=== PATIENT | male | born 1950 | race American Indian/Alaskan Native ===

== ENCOUNTER 2017-11-25 11:05 | Day surgery (SDC) | payer MEDICARE ==
[~2017-11-25 11:05] MED LIST: GARAMYCIN ONE; KENALOG-40 ONE; LACTATED RINGERS 1,000 ML IV SCH; TETRACAINE 0.5% OD PRN; VERSED IV NR
--- NOTE | 2017-11-25 12:59 | Anesthesia Day of Surgery ---
Anesthesia Day of Surgery - Day of Surgery Patient Examined: Yes Patient H&P Reviewed: Yes Patient is NPO: Yes
--- NOTE | 2017-11-25 12:59 | Anesthesia Consultation ---
Anesthesia Consult and Med Hx Date of service: 11/25/17 - Airway Anesthetic Teeth Evaluation: Edentulous ROM Head & Neck: Adequate Mental/Hyoid Distance: Adequate Mallampati Class: Class III Intubation Access Assessment: Possibly Difficult - Pulmonary Exam CTA: Yes - Cardiac Exam Cardiac Exam: RRR - Pre-Operative Health Status ASA Pre-Surgery Classification: ASA3 Proposed Anesthetic Plan: General, MAC - Cardiovascular System Hx Hypertension: Yes - Central Nervous System CVA: Yes - Endocrine Hx Insulin Dependent Diabetes: Yes - Other Systems Hx Obesity: Yes
[2017-11-25] MEDS: VIGAMOX OD SCH ×3 (13:03→13:20)
[2017-11-25] MEDS ORDERED: SUBLIMAZE ONE ×4 (14:07→15:15)
[2017-11-25] MEDS ORDERED: VERSED ONE ×4 (14:09→15:15)
[2017-11-25] MEDS ORDERED: ROBINUL ONE ×2 (14:53)
[2017-11-25] MEDS ORDERED: ZOFRAN ONE (15:00)
[2017-11-25] MEDS ORDERED: DECADRON ONE (15:00)
[2017-11-25] MEDS ORDERED: BSS OS ONE (15:07)
[2017-11-25] MEDS ORDERED: XYLOCAINE MPF 1% INFILTRATI ONE (15:09)
--- NOTE | 2017-11-25 16:34 | Operative Report ---
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 POSTOPERATIVE DIAGNOSIS: Same PROPOSED PROCEDURE: Endothelial keratoplasty right eye repeat ADDITIONAL PROCEDURE: NONE OPERATIVE PROCEDURE: Same SURGEON: Sarah Velasco MD [employer] SURGEON: [] ANESTHESIA: Monitored anesthesia care in combination with topical and intracameral anesthesia because of the established specific risk of reflux, arrhythmias, or anxiety attacks associated with ocular manipulation, as well as the difficulty of the button tacker to manage such potentially catastrophic events while simultaneously attempting to complete the surgical procedure and was deemed necessary for the patient's safety to have an anesthesiologist was present during the procedure whenever possible. The anesthesiologist was utilized to regulate the intravenous sedation of the patient so the patient was cooperative yet not asleep in order for the patient to successfully maintain fixation of the eye on the operating light of the microscope. SFDC CONSULTANT: COMPLICATIONS: None ALLERGIES: [No known drug allergies] PREOPERATIVE NOTE: The patient had a previous endothelial keratoplasty surgery which was uneventful. Unfortunately although the graft was attached to cornea never cleared. At that point a diagnosis of primary graft failure was given and decision was made to repeat the transplant. 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 Donor tissue will be used to replace the dysfunctional endothelium utilizing a penetrating technique into the anterior chamber. This complicated technique allows the patient to maintain structural integrity of the eye making it much more resistant to traumatic rupture than a standard keratoplasty. It also allows a larger than average surface area of transplanted endothelium which hopefully in the long run will allow for longer endothelial viability and success for the surgery. It also provides for faster visual recovery and less anisometropia than previous keratoplasty techniques. It is technically more difficult because of the complicated preparation of the donor tissue and insertion of the donor tissue into the anterior chamber with fixation of the tissue without direct suturing of the donor. This also provides an increased chance of dislocation of the donor tissue in the immediate postoperative period compared to standard keratoplasty techniques. This type of corneal transplant takes over twice as long as a standard corneal transplant. Moreover, the preparation and end of surgery are more time consuming for both the surgeon and staff: the blocking of the eye requires a longer setup time as noted, the procedure itself is more complex, and the patient needs to lay face up and flat in the recovery area for a specified period of time prior to discharge. Preoperatively, it was discussed with the patient that they could have either a standard corneal transplant or a variation of a penetrating keratoplasty where only the posterior layers of the cornea are transplanted. With this new technique, as with any corneal transplant, there is always the possibility that the surgery may need to be repeated; or, in this case, also repeated with a standard corneal transplant if the visual result is not satisfactory. However, some of the advantages of this current technique are much more rapid visual recovery and a tectonically stronger eye after surgery. PROGNOSIS: Excellent INDICATIONS FOR SURGERY: The patient is undergoing surgery with the hope of eliminating or improving these visual difficulties. OPERATIVE REPORT: The patient was taken into the preoperative area and evaluated medically and found from a systemic standpoint to be suitable for the planned surgery and anesthesia. The patient was then sedated and monitored by anesthesia. The patient was next taken into the operating room where they were positioned on the operating bed. They were given drops of topical anesthetic in the operative eye. Betadine was used to scrub the periorbital area, eyelids, adjacent cheek and forehead. The prepped area was dried with sterile gauze. The patient was draped, and a wire speculum was placed between the eyelids. The horizontal diameter of the cornea was measured with calipers to assist in determining the proper sizing of the trephination blade to be used for donor incision and for removal of the patients central Descemets membrane. PREPARATION OF DONOR TISSUE: Prior to surgery, the donor tissue was inspected and found to be adequate for the planned procedure. The involved eye bank provided the usual demographic information on the donor including age, cause of , necessary screening and blood work. The results were negative regarding possible transmission of diseases from the donor. Our inspection of the donor tissue showed no gross abnormalities. The cornea was inspected prior to surgery and found to be suitable and at the time of surgery was taken out of the storage solution and carefully centered on the cutting block with the centration based on the centration mohsen that was made the eye bank on the external surface of the cornea-the stromal side. The donor tissue was removed from the tissue storage container by carefully removing it with forceps taking care not to touch the endothelial surface but only the scleral rim Suction was applied, the centration was rechecked to make sure it was perfectly centered. Once the size of the appropriate trephine was determined, the donor was punched with the trephine. The donor cornea was then covered with tissue storage solution and put aside for use later in the surgical procedure. PREPARATION OF THE RECIPIENT CORNEA: Attention was now directed to the patient s eye. The epithelium was found to be very hazy and edematous and I elected to remove all the epithelium. The patient had previously had a clear corneal incision of 5.0 mm for corneal surgery. This incision was able to be opened by using a Sinskey hook to separate the superficial area of the wound. Next, a cyclodialysis spatula was used to separate the deeper anterior vertical portion and the incision and then the lamellar portion. After the side port incision was made as noted below, a specially modified Jose Manuel-Zaira hook was introduced through the reopened incision into the anterior chamber and advanced to the nasal side of the chamber. The hook was used to grab the nasal side of the graft and dislodge it. Pulling with the hook, the graft was disinserted from the back surface of the patient, or recipient, cornea and removed from the eye. In this case, the Descemets, which was stripped and removed, consisted of the previous graft with the portion of stroma from the previous donor. A sharp blade was next used to make a stab incision in mid peripheral cornea into the anterior chamber. This was done so that the inner portion would be covered by the donor tissue later in the case. Gentian erika marked the incision as well. This incision was positioned to be used by my right hand. A 23-gauge needle hooked up to an infusion of balanced salt solution was inserted through the midperipheral cornea into the anterior chamber. This was used to maintain the anterior chamber while removing Descemets membrane. A modified Jose Manuel-Sinkoko hook was next placed through the stab incision and the hook was used to remove previous graft . The anterior chamber was reinflated with balanced salt solution. The donor tissue was removed from the cutting block and transferred to the operative field. It was placed on the patients cornea so that the endothelium of the donor was facing up. The tissue storage solution and any blood or other material was allowed to flow off the donor tissue. A small amount of viscoelastic was then placed on the endothelial surface of the donor. Two forceps were then used to grasp an edge of the donor taking care not to actually touch the endothelium and the posterior portion of the donor, which had been previously dissected on the artificial anterior chamber, and the donor gently partially pulled apart about half of the posterior portion from the anterior portion. A Busin Funnel was brought into the operative field and the posterior portion of the donor was pulled onto it. Intraocular forceps were used to pull the tissue into the funnel, essentially making it fold over on itself endothelial side inward. The intraocular forceps were then introduced through a previously made peripheral corneal stab incision in the nasal cornea. The forceps were moved across the anterior chamber to the area of the 5.0 mm incision. The Busin funnel was inserted into the 5.0 mm wound. The forceps grasped the edge of the donor tissue and the tissue was pulled into the eye. Once inside the eye, the forceps released their hold and the funnel was removed. Using a 30-gauge needle, a small stab incision was made in the peripheral cornea and a small amount of air was injected within the folded-over piece of donor tissue in the eye. The air was slowly injected to unfold the donor endothelial side down. Once the donor had unfolded, the anterior chamber was completely filled with air. A Toshia roller was used to massage the anterior surface of the cornea and to massage the donor tissue into the correct position. The massaging also helped to remove retained air or fluid caught between the donor and recipient tissue. Once the donor was in the correct position and no retained fluid or air was present between the donor and recipient, the timer was started and the anterior chamber was left completely filled with air for the designated time. A bandage contact lens that had been soaked into Vigamox was placed onto the cornea. OTHER SPECIFICS OF THE SURGICAL PROCEDURE: Trephine size: [8.25] mm Time anterior chamber was completely filled with air in the operating room while the donor cornea was allowed to hold in position without any manipulation or massaging: eight minutes The patient laid face up and flat in the recovery room with a partial air bubble to help with further adherence of the donor cornea to the recipient cornea for the following length of time: 45 minutes Patient was given 8 mg of Decadron and 1 gm of Ancef DISCHARGE SUMMARY: The patient was released in stable condition. The patient and those with the patient were given a written sheet of postoperative instructions and counseling on any abnormal laboratory studies. The patient is to call immediately for difficulties and will otherwise see us in the morning at the office. The patient was given prescriptions for Tylenol No. 3, Keflex, and TobraDex ointment. Sarah Velasco M.D. Date cc: Dictated: Worksheets: Transcribed:
--- NOTE | 2017-11-25 16:37 | Short Stay Summary ---
Short Stay Documentation Date of service: 11/25/17 - History H&P: obtained from office - Allergies and Medications Current Medications: Allergies No Known Drug Allergies Allergy (Verified 11/24/17 18:30) Unknown Active Medications Lactated Ringer's (Lactated Ringers) 1,000 mls @ 100 mls/hr IV DIRECT VENECIA Stop: 11/25/17 18:00 Midazolam HCl (Versed) 2 mg IV PREOP NR Stop: 11/25/17 23:59 Moxifloxacin HCl (Vigamox) 1 drops OD Q5MIN VENECIA Stop: 11/27/17 06:01 Last Admin: 11/25/17 13:20 Dose: 1 drops Prednisolone Acetate (Pred Forte 1%) 1 drops OD QID VENECIA Tetracaine HCl (Tetracaine 0.5%) 1 drops OD Q5M PRN PRN Reason: Analgesia Last Admin: 11/25/17 13:02 Dose: 1 drops - Brief post op/procedure progress note Date of procedure: 11/25/17 Pre-op diagnosis: primary graft failure right eye Post-op diagnosis: same Procedure: Endothelial keratoplasty right eye Anesthesia: MAC, local Surgeon: LENORE YE Estimated blood loss: none Pathology: none Condition: stable - Disposition Condition at discharge: Good Disposition: DC-01 TO HOME OR SELFCARE - Discharge Diagnoses (1) Mechanical complication of corneal graft Status: Resolved Qualifiers: Encounter type: sequela Qualified Code(s): T85.398S - Other mechanical complication of other ocular prosthetic devices, implants and grafts, sequela Short Stay Discharge Plan Follow up with: PRIMARY CARE, [Primary Care Provider] - 7 Days
[2017-11-25 17:17] VITALS: BP 159/89
--- NOTE | 2017-11-25 17:22 | Post Anesthesia Evaluation ---
- Post Anesthesia Evaluation Patient Participated: Yes Airway Patent: Yes Stable Respiratory Function: Yes Nausea/Vomiting: No Temp > 96.8F: Yes Pain Manageable: Yes Adequeate Hydration: Yes Anesthesia Complications: No
[2017-11-25] MEDS ORDERED: PRED FORTE 1% OD SCH (18:00)
== END 2017-11-25 17:30 | disposition home or self-care (01) ==
LOC: OR 11:05
DX: T86.841 Corneal transplant failure (principal); E11.9 Type 2 diabetes mellitus without complications; I10 Essential (primary) hypertension; E66.9 Obesity, unspecified; Z79.899 Other long term (current) drug therapy; Z86.73 Personal history of transient ischemic attack (TIA), and cerebral infarction without residual deficits; Z68.30 Body mass index [BMI] 30.0-30.9, adult
CPT/HCPCS: 65756; 82962; 87075; 87116; 88304; J1100; J1580; J2250; J2405; J3010; J3301; V2785